=== PATIENT | female | born 1990 | race Asian ===

== ENCOUNTER 2022-11-24 09:02 | Emergency (ER) | payer OTHER ==
[~2022-11-24] VITALS: Ht 154.9 cm; Wt 771.6 kg
[2022-11-24 09:15] VITALS: BP 104/69; TEMP 97.2
== END 2022-11-24 11:06 | disposition home or self-care (01) ==
LOC: ED 09:02
DX: M54.12 Radiculopathy, cervical region (principal); S16.1XXA Strain of muscle, fascia and tendon at neck level, initial encounter
CPT/HCPCS: 81025; 99283

== ENCOUNTER 2023-01-11 06:35 | Emergency (ER) | payer OTHER ==
[~2023-01-11] VITALS: Ht 154.9 cm; Wt 77.1 kg
[2023-01-11 06:35] VITALS: BP 101/67; TEMP 99
== END 2023-01-11 07:37 | disposition home or self-care (01) ==
LOC: ED 06:35
DX: U07.1 COVID-19 (principal); J02.0 Streptococcal pharyngitis
CPT/HCPCS: 87635; 87651; 99283; U0003

== ENCOUNTER 2023-02-01 14:34 | Outpatient (CLI) | payer OTHER | END 2023-02-01 19:06 | disposition home or self-care (01) | LOC: MRI 14:34 | PROVIDERS: ATTEND Nurse Practitioner Family | DX: M54.12 Radiculopathy, cervical region (principal) ==